=== PATIENT | female | born 1975 | race African-American/Black ===

== ENCOUNTER → 2017-05-29 | Outpatient (CLI) | payer OTHER ==
--- NOTE | 2017-05-30 08:53 | CT ---
EXAMINATION TYPE: CT soft tissue neck w con DATE OF EXAM: 05/29/2017 6:31 PM COMPARISON: NONE HISTORY: Cervical Disc Disease CT DLP: 329.5 mGycm Automated exposure control for dose reduction was used. CONTRAST: CT scan of the neck is performed following with IV Contrast, patient injected with 100ml mL of Omnipa que 300. Axial images are obtained, coronal and sagittal reformatted images are reviewed. FINDINGS: Airway: No gross abnormality seen. Parotid/submandibular glands: No gross abnormality seen. Carotid/Vascular Structures: Patent, no evidence stenosis. No evident aneurysm or filling defect to s uggest embolus or dissection Osseous Structures: Loss of normal cervical lordosis. Cervical vertebral bodies are intact and show n ormal alignment. Other: Dental amalgam causes streak artifact over portions of the exam. Thyroid gland shows normal de nsity. Lung apices are normal. Orbits are symmetric. IMPRESSION: Loss of lordosis can be seen with muscle spasm. No sizable disc herniation is evident, M RI may be of increased sensitivity.
== END | disposition home or self-care (01) ==
LOC: RADCTMAIN 17:42
PROVIDERS: ATTEND Family Medicine
DX: M50.30 Other cervical disc degeneration, unspecified cervical region (principal)
CPT/HCPCS: 70491; Q9967

== ENCOUNTER → 2018-03-23 | Outpatient (CLI) | payer OTHER ==
--- NOTE | 2018-03-24 11:23 | MM ---
Reason for exam: screening (asymptomatic). Last mammogram was performed 2 years and 10 months ago. Physical Findings: A clinical breast exam by your physician is recommended on an annual basis and results should be correlated with mammographic findings. MG Screening Mammo w CAD Bilateral CC and MLO view(s) were taken. Prior study comparison: May 25, 2015, mammogram, performed at [place]. The breast tissue is heterogeneously dense. This may lower the sensitivity of mammography. No suspicious abnormality. No significant changes when compared with prior studies. ASSESSMENT: Negative, BI-RAD 1 RECOMMENDATION: Routine screening mammogram of both breasts in 1 year.
== END | disposition home or self-care (01) ==
LOC: RADMAMWWP 11:54
PROVIDERS: ATTEND Internal Medicine Geriatric Medicine
DX: Z12.31 Encounter for screening mammogram for malignant neoplasm of breast (principal)
CPT/HCPCS: 77067

== ENCOUNTER → 2019-05-06 | Outpatient (CLI) | payer OTHER ==
--- NOTE | 2019-05-07 13:33 | MM ---
Reason for exam: screening (asymptomatic). Last mammogram was performed 1 year and 1 month ago. Physical Findings: A clinical breast exam by your physician is recommended on an annual basis and results should be correlated with mammographic findings. MG Screening Mammo w CAD Bilateral CC and MLO view(s) were taken. Prior study comparison: March 23, 2018, bilateral MG screening mammo w CAD. May 25, 2015, mammogram, performed at [place]. The breast tissue is heterogeneously dense. This may lower the sensitivity of mammography. No suspicious abnormality. No significant changes when compared with prior studies. ASSESSMENT: Negative, BI-RAD 1 RECOMMENDATION: Routine screening mammogram of both breasts in 1 year.
== END | disposition home or self-care (01) ==
LOC: RADMAMWWP 07:23
PROVIDERS: ATTEND Obstetrics & Gynecology
DX: Z12.31 Encounter for screening mammogram for malignant neoplasm of breast (principal)
CPT/HCPCS: 77067

== ENCOUNTER → 2020-05-08 | Outpatient (CLI) | payer OTHER ==
--- NOTE | 2020-05-09 09:43 | MM ---
Reason for exam: screening (asymptomatic). Last mammogram was performed 1 year ago. History: Family history of breast cancer in maternal cousin at age 43. Physical Findings: A clinical breast exam by your physician is recommended on an annual basis and results should be correlated with mammographic findings. MG Screening Mammo w CAD Bilateral CC and MLO view(s) were taken. Prior study comparison: May 06, 2019, bilateral MG screening mammo w CAD. March 23, 2018, bilateral MG screening mammo w CAD. The breast tissue is heterogeneously dense. This may lower the sensitivity of mammography. There is no discrete abnormality. No significant changes when compared with prior studies. ASSESSMENT: Negative, BI-RAD 1 RECOMMENDATION: Routine screening mammogram of both breasts in 1 year.
== END | disposition home or self-care (01) ==
LOC: RADMAMWWP 08:10
PROVIDERS: ATTEND Obstetrics & Gynecology
DX: Z12.31 Encounter for screening mammogram for malignant neoplasm of breast (principal)
CPT/HCPCS: 77067

== ENCOUNTER → 2020-05-15 | Outpatient (CLI) | payer OTHER ==
--- NOTE | 2020-05-15 10:52 | XR ---
EXAMINATION TYPE: XR wrist complete LT DATE OF EXAM: 05/15/2020 COMPARISON: NONE HISTORY: 44-year-old female forced wrist extension, S63.502D TECHNIQUE: 4 views FINDINGS: The radiocarpal and distal radioulnar joint as well as the midcarpal compartment appear intact. There is minimal degenerative spurring within the triscaphe joint. No acute fracture, subluxation, or disl ocation. 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 No acute osseous abnormality seen .
== END | disposition home or self-care (01) ==
LOC: RADXRMAIN 10:20
PROVIDERS: ATTEND Emergency Medicine
DX: M19.032 Primary osteoarthritis, left wrist (principal); M25.732 Osteophyte, left wrist

== ENCOUNTER → 2020-07-24 | Outpatient (CLI) | payer OTHER ==
--- NOTE | 2020-07-24 15:55 | US ---
EXAMINATION TYPE: US pelvic complete plus Doppler DATE OF EXAM: 07/24/2020 COMPARISON: None CLINICAL HISTORY: 44-year-old female R10.2 pelvic pain. Pelvic pain prior to menstrual cycle; ; a rm implant control TECHNIQUE: Transabdominal sonographic images of the pelvis were acquired. Color Doppler and spectral waveform analysis of the ovarian arteries and veins. Date of LMP: 3 weeks ago FINDINGS: EXAM MEASUREMENTS: Uterus: 9.8 x 5.5 x 4.5 cm Endometrial Stripe: 0.9 cm Right Ovary: 2.1 x 2.1 x 1.1 cm Left Ovary: 3.3 x 2.6 x 1.9 cm 1. Uterus: anteverted, with heterogeneous myometrium. There is an anterior right fundal fibroid jasbir uring 1.4 x 1.7 x 1.2cm. This is primarily intramural with a small subserosal component. 2. Endometrium: thickness is wnl for approximately day 21 LMP 3. Right Ovary: small follicles 4. Left Ovary: A crenulated structure measuring 2.1 x 2.1 x 1.8cm is noted, possible corpus luteum o r recently ruptured follicle. Spectral, color and waveform Doppler imaging shows good arterial and venous flow within the ovaries ; there is no evidence for ovarian torsion. 5. Bilateral Adnexa: wnl 6. Posterior cul-de-sac: wnl IMPRESSION: 1. Heterogeneous myometrium could reflect adenomyosis or diffuse small fibroid change. A focal fibroi d measuring 1.7 cm is present along the right uterine fundus. 2. A 2.1 cm corpus luteum or a recently ruptured follicle within the left ovary. 3. No sonographic evidence for ovarian torsion.
--- NOTE | 2020-07-24 16:01 | US ---
EXAMINATION TYPE: US abdomen complete DATE OF EXAM: 07/24/2020 COMPARISON: NONE CLINICAL HISTORY: 44-year-old female Pelvic Pain. See pelvic US; Patient ate 5 hours ago and wasn't a hansen of prep. TECHNIQUE: Multiple sonographic images of the abdomen are obtained. FINDINGS: EXAM MEASUREMENTS: Liver Length: 18.1 cm Gallbladder Wall: 0.2 cm CBD: 0.3 cm Spleen: 11.6 cm Right Kidney: 10.1 x 7.1 x 5.3 cm Left Kidney: 11.1 x 5.6 x 5.8 cm Pancreas: wnl Liver: wnl Gallbladder: wnl Evidence for sonographic Gamino's sign: no CBD: wnl Spleen: wnl Right Kidney: inferior cortical cyst = 1.3 x 1.2 x 1.2cm; medial mid pole cyst = 2.0 x 2.0 x 1.8cm; superior possible 10 x 6 x 4 mm renal calculus in the upper pole. No hydronephrosis. Left Kidney: No hydronephrosis. Upper IVC: wnl Abd Aorta: wnl IMPRESSION: 1. Mild hepatomegaly (18.1 cm). 2. No gallstones or biliary ductal dilatation. 3. Benign cysts within the right kidney measuring up to 2.0 cm and a possible 1.0 cm nonobstructive r ight upper pole renal calculus.
== END | disposition home or self-care (01) ==
LOC: RADUSWWP 13:55
PROVIDERS: ATTEND Family Medicine
DX: D25.9 Leiomyoma of uterus, unspecified (principal); R16.0 Hepatomegaly, not elsewhere classified; N28.1 Cyst of kidney, acquired; N20.0 Calculus of kidney
CPT/HCPCS: 76700; 76856

== ENCOUNTER → 2021-04-13 | Outpatient (CLI) | payer OTHER ==
[2021-04-13 11:46] LABS: HGB 13.4 g/dL (12.0-15.0); MCH 27.3 pg (27.0-32.0); MCHC 31.2 g/dL (32.0-37.0); MCV 87.8 fL (80.0-97.0); Mean Platelet Volume 11.3 fL (9.5-12.2); Platelet Count 402 X 10*3/uL (140-440); RDW 13.6 % (11.5-14.5); WBC 5.03 X 10*3/uL (4.50-10.00)
[2021-04-13 16:35] LABS: Progesterone 0.9 ng/mL
[2021-04-13 16:36] LABS: Follicle Stimulating Hormone 10.2 mIU/mL; Luteinizing Hormone 7.5 mIU/mL; Prolactin 24.1 ng/mL (2.800-29.200); T4, Free (Free Thyroxine) 1.18 ng/dL (0.800-1.800)
== END | disposition home or self-care (01) ==
LOC: LABWHC1 06:57
PROVIDERS: ATTEND Obstetrics & Gynecology
DX: Z13.29 Encounter for screening for other suspected endocrine disorder (principal); N93.8 Other specified abnormal uterine and vaginal bleeding
CPT/HCPCS: 36415; 82670; 83001; 83002; 84144; 84146; 84439; 84443; 84479; 85027

== ENCOUNTER → 2021-05-30 | Outpatient (CLI) | payer OTHER ==
--- NOTE | 2021-05-31 14:11 | MM ---
Reason for exam: screening (asymptomatic). Last mammogram was performed 1 year and 1 month ago. History: Family history of breast cancer in maternal cousin at age 43. Physical Findings: A clinical breast exam by your physician is recommended on an annual basis and results should be correlated with mammographic findings. MG Screening Mammo w CAD Bilateral CC and MLO view(s) were taken. Prior study comparison: May 08, 2020, bilateral MG screening mammo w CAD. May 06, 2019, bilateral MG screening mammo w CAD. The breast tissue is heterogeneously dense. This may lower the sensitivity of mammography. There is no discrete abnormality. No significant changes when compared with prior studies. ASSESSMENT: Negative, BI-RAD 1 RECOMMENDATION: Routine screening mammogram of both breasts in 1 year.
== END ==
LOC: RADMAMWWP 08:09
PROVIDERS: ATTEND Obstetrics & Gynecology
DX: Z12.31 Encounter for screening mammogram for malignant neoplasm of breast (principal); Z80.3 Family history of malignant neoplasm of breast
CPT/HCPCS: 77067

== ENCOUNTER → 2022-07-23 | Outpatient (CLI) | payer OTHER ==
--- NOTE | 2022-07-24 15:42 | MM ---
Reason for Exam: Screening (asymptomatic). Last mammogram was performed 1 year(s) and 2 month(s) ago. Patient History: Menarche at age 14. First Full-Term at age 23. Currently using Hormonal Contraceptives, for 4 months. Maternal cousin had breast cancer, age 43. Last menstrual period: 07/01/2022 Risk Values: Colleen 5 year model risk: 0.7%. NCI Lifetime model risk: 8.6%. Prior Study Comparison: 05/06/2019 Bilateral Screening Mammogram, [facility]. 05/08/2020 Bilateral Screening Mammogram, [facility]. 05/30/2021 Bilateral Screening Mammogram, [facility]. Tissue Density: The breast tissue is heterogeneously dense. This may lower the sensitivity of mammography. Findings: Analyzed By CAD. Pattern appears symmetrical and stable. No significant interval change is evident. No suspicious groups of microcalcifications, spiculated or lobular masses, architectural distortion or other secondary signs of malignancy are mammographically apparent. Overall Assessment: Benign, BI-RAD 2 Management: Screening Mammogram of both breasts in 1 year. A negative mammogram report should not preclude additional follow up of suspicious palpable abnormalities. Patient should continue monthly self breast exam. A clinical breast exam by your physician is recommended on an annual basis and results should be correlated with mammographic findings. Electronically signed and approved by: Mehran Flores D.O. Radiologis
== END | disposition home or self-care (01) ==
LOC: RADMAMWWP 16:29
PROVIDERS: ATTEND Family Medicine
DX: Z12.31 Encounter for screening mammogram for malignant neoplasm of breast (principal); Z80.3 Family history of malignant neoplasm of breast
CPT/HCPCS: 77067

== ENCOUNTER → 2023-07-25 | Outpatient (CLI) | payer OTHER ==
--- NOTE | 2023-07-28 09:34 | MM ---
Reason for Exam: Screening (asymptomatic). Last screening mammogram was performed 12 month(s) ago. Patient History: Menarche at age 14. First Full-Term at age 23. Premenopausal. Currently using Hormonal Contraceptives, for 4 months. Maternal cousin had breast cancer, age 43. Last menstrual period: 06/26/2023 Risk Values: Colleen 5 year model risk: 0.9%. NCI Lifetime model risk: 9.2%. Prior Study Comparison: 05/08/2020 Bilateral Screening Mammogram, [facility]. 05/30/2021 Bilateral Screening Mammogram, [facility]. 07/23/2022 Bilateral MG screening mammo w CAD, [facility]. Tissue Density: The breasts are heterogeneously dense, which may obscure small masses. Findings: Analyzed By CAD. There is no suspicious group of microcalcifications or new suspicious mass in either breast. Overall Assessment: Negative, BI-RAD 1 Management: Screening Mammogram of both breasts in 1 year. . Patient should continue monthly self-breast exams. A clinical breast exam by your physician is recommended on an annual basis. This exam should not preclude additional follow-up of suspicious palpable abnormalities. Note on Colleen scores and lifetime risk: 1. A Colleen score greater than 3% is considered moderate risk. If this is the case, consider specialist referral to assess eligibility for a risk reducing agent. 2. If overall lifetime risk for the development of breast cancer is 20% or higher, the patient may qualify for future screening with alternating mammogram and breast MRI. Electronically signed and approved by: Cristi Irving M.D. Radiologis
== END | disposition home or self-care (01) ==
LOC: RADMAMWWP 10:15
PROVIDERS: ATTEND Family Medicine
DX: Z12.31 Encounter for screening mammogram for malignant neoplasm of breast (principal); Z80.3 Family history of malignant neoplasm of breast
CPT/HCPCS: 77067